=== PATIENT | female | born 1995 | race American Indian/Alaskan Native ===

== ENCOUNTER 2019-12-09 22:33 | Outpatient (CLI) | payer OTHER ==
[2019-12-09 22:55] VITALS: BP 114/64
== END 2019-12-10 00:10 | disposition home or self-care (01) ==
LOC: TRG 22:33 → APU 22:34 → TRG 12-10 00:10
PROVIDERS: ATTEND Obstetrics & Gynecology
DX: O47.1 False labor at or after 37 completed weeks of gestation (principal); Z3A.39 39 weeks gestation of pregnancy
CPT/HCPCS: 59025

== ENCOUNTER 2019-12-17 10:10 | Inpatient (IN) | payer OTHER ==
[2019-12-17] MEDS ORDERED: TERBUTALINE 1 MG/1 ML INJ SUB-Q PRN (11:22)
[2019-12-17] MEDS ORDERED: fentaNYL 100 MCG/2 ML INJ IV PRN (11:22)
[2019-12-17] MEDS ORDERED: LIDOCAINE (2%) 20 MG/1 ML VIAL 20 ML MDV INFILTRATI ONE (11:22)
[2019-12-17] MEDS ORDERED: ePHEDrine SULFATE 50 MG/1 ML INJ IV PRN (11:22)
[2019-12-17] MEDS ORDERED: MINERAL OIL 30 ML ORAL LIQD PO PRN (11:22)
[2019-12-17] MEDS ORDERED: BUTORPHANOL 2 MG/1 ML INJ IV PRN (11:22)
[2019-12-17] MEDS ORDERED: ONDANSETRON 4 MG/2 ML INJ IV PRN (11:22)
[2019-12-17 11:54] LABS: Hematocrit 32.8 % (30.3-42.9); Hemoglobin 10.7 gm/dl (10.1-14.3); Mean Corpuscular HGB Conc 33 % (30-34); Mean Corpuscular Volume 93 fl (79-97); Platelet Count 343 K/mm3 (140-440); Red Blood Count 3.52 M/mm3 (3.65-5.03); Red Cell Distribution Width 14.2 % (13.2-15.2)
[2019-12-17] MEDS ORDERED: OXYTOCIN DRIP 30 UNITS/500 ML BAG IV SCH ×2 (12:00→15:00)
[2019-12-17] MEDS ORDERED: LACTATED RINGERS 1,000 ML IV SCH (12:00)
--- NOTE | 2019-12-17 12:39 | History and Physical Report ---
History of Present Illness Date of examination: 12/17/19 Date of admission: 12/17/2019 Chief complaint: Active labor at term History of present illness: 24 yo, @ 39.5 wks, initiated care with MyOBGYN at 6.5 wks gestation, then transferred to [facility] for care. Her has been uncomplicated. She was seen in office this AM and sent to hospital for active labor. She reports positive FM. Denies any VB or LOF. Labs: O+, antibod negative; rubella immune; HBsAg negative; RPR negative; HIV negative; GC/Chlamydia/ Trich negative; urine culture negative; 1 hr gtt - 114; GBS negative. Past History Past Medical History: no pertinent history Past Surgical History: no surgical history Family/Genetic History: none Social history: full code. denies: smoking, alcohol abuse, prescription drug abuse, IV drug use - Obstetrical History Expected Date of Delivery: 12/15/19 Actual Gestation: 40 Week(s) 2 Day(s) : 2 Para: 1 Hx # Term Pregnancies: 0 Number of Pregnancies: 0 Spontaneous Abortions: 0 Induced : 0 Number of Living Children: 1 #1 Gender: Female year: 2[age][birth year] Birthweight: 2.438 kg Method of Delivery: Vaginal Gestational age at delivery: 37 Complications: none Medications and Allergies Allergies Allergy/AdvReac Type Severity Reaction Status Date / Time No Known Allergies Allergy Unverified 12/09/19 23:07 Active Meds: Active Medications Butorphanol Tartrate (Stadol) 2 mg IV Q2H PRN PRN Reason: Pain , Severe (7-10) Ephedrine Sulfate (Ephedrine Sulfate) 10 mg IV Q2M PRN PRN Reason: Hypotension Fentanyl (Sublimaze) 100 mcg IV Q2H PRN PRN Reason: Pain,Severe (7-10) LABOR PAIN Last Admin: 12/17/19 11:48 Dose: 100 mcg Documented by: Lactated Ringer's (Lactated Ringers) 1,000 mls @ 125 mls/hr IV DIRECT ROMERO Oxytocin/Sodium Chloride (Pitocin/Ns 30 Unit/500ml) 30 units in 500 mls @ 40 mls/hr IV TITR ROMERO; Protocol Ampicillin Sodium (Ampicillin/Ns 2 Gm/100 Ml) 2 gm in 100 mls @ 100 mls/hr IV ONCE ONE; Protocol Stop: 12/17/19 14:21 Mineral Oil (Mineral Oil) 30 ml PO QHS PRN PRN Reason: Constipation Ondansetron HCl (Zofran) 4 mg IV Q8H PRN PRN Reason: Nausea And Vomiting Terbutaline Sulfate (Brethine) 0.25 mg SUB-Q ONCE PRN PRN Reason: Hyperstimulation/Hypertonicity Review of Systems All systems: negative Genitourinary: contractions - Vital Signs Vital signs: Vital Signs Temp Pulse Resp BP 98.2 F 96 H 20 122/81 12/17/19 10:43 12/17/19 10:43 12/17/19 10:43 12/17/19 10:43 Temp Pulse Resp BP Pulse Ox 98.2 F 102 H 18 115/66 92 12/17/19 10:43 12/17/19 11:20 12/17/19 11:48 12/17/19 11:20 12/17/19 10:53 - Physical Exam Breasts: Positive: normal Cardiovascular: Regular rate Lungs: Positive: Normal air movement Abdomen: Positive: other (gravid) Uterus: Positive: enlarged (S=D) - Obstetrical FHR: category 1 Uterine Contraction Monitor Mode: External Cervical Dilatation: 4.5 (per RN) Cervical Effacement Percentage: 50 station: -3 Uterine Contraction Frequency (min): 2-4 Uterine Contraction Pattern: Irregular Uterine Tone Measurement Phase: Resting Uterine Contraction Intensity: Mild Results Result Diagrams: 12/17/19 11:36 Abnormal lab results 12/17/19 Range/Units 11:36 WBC 15.8 H (4.5-11.0) K/mm3 RBC 3.52 L (3.65-5.03) M/mm3 All other labs normal. Assessment and Plan - Patient Problems (1) Active labor at term Current Visit: Yes Status: Acute Plan to address problem: Admit to L & D Pain meds as desired per orders Anticipate (2) Anemia Current Visit: Yes Status: Acute Qualifiers: Anemia type: iron deficiency Plan to address problem: Asymptomatic Recheck H/H
--- NOTE | 2019-12-17 12:58 | Anesthesia Consultation ---
Anesthesia Consult and Med Hx Date of service: 12/17/19 - Airway Anesthetic Teeth Evaluation: Good ROM Head & Neck: Adequate Mental/Hyoid Distance: Adequate Mallampati Class: Class II Intubation Access Assessment: Probably Good - Pulmonary Exam CTA: Yes - Cardiac Exam Cardiac Exam: RRR - Pre-Operative Health Status ASA Pre-Surgery Classification: ASA2 Proposed Anesthetic Plan: Epidural - Pulmonary Hx Asthma: No - Cardiovascular System Hx Hypertension: No - Central Nervous System Hx Seizures: No Hx Psychiatric Problems: No - Endocrine Hx Renal Disease: No Hx Hypothyroidism: No Hx Hyperthyroidism: No - Hematic Hx Anemia: Yes (TAKING IRON) Hx Sickle Cell Disease: No - Other Systems Hx Alcohol Use: No
[2019-12-17] MEDS ORDERED: fentaNYL-BUPIV 2 MCG/ML-0.125% 200 MCG/100 ML BAG EPIDURAL SCH (13:00)
[2019-12-17] MEDS ORDERED: NALOXONE 2 MG/2 ML INJ IV PRN (13:00)
[2019-12-17] MEDS ORDERED: fentaNYL-BUPIV 2 MCG/ML-0.125% 200 MCG/100 ML BAG EPIDURAL ONE (13:03)
[2019-12-17] MEDS ORDERED: AMPICILLIN/NS 2 GM/100 ML 2 GM/100 ML BAG IV ONE (13:22)
--- NOTE | 2019-12-17 13:32 | Progress Note ---
Labor Epidural - Labor Epidural Start Time: 13:11 Stop Time: 13:21 Performed by:: JI FLETON Procedure: Patient is requesting epidural for labor pain. H&P, and labs reviewed. Procedure explained, questions answered, consent obtained. Patient in sitting position with blood pressure cuff and pulse ox on and working. Timeout performed immediately before start of procedure. Sterile betadine prep/drape. 3 mL 1% lidocaine skin wheal at L[3]-L[4]. 18-gauge Touhy epidural needle advanced to [id number] with saline at [7] cm. 27-gauge spinal needle advanced until clear, free-flowing CSF. Intrathecal dexmedetomidine [5] mcg administered and needle removed. Epidural catheter advanced to [12] cm, positive aspiration for blood. Removed and reinserted, negative aspiration for blood and csf, negative test dose 3 ml 1.5% lidocaine with epinephrine. Sterile steri-strips and tegaderm applied, followed by tape reinforcement. Patient tolerated procedure well. [] SRNA
[2019-12-17] MEDS: ePHEDrine SULFATE 50 MG/1 ML INJ IV PRN ×2 (13:45→14:18)
[2019-12-17] MEDS ORDERED: AMPICILLIN/NS 1 GM/50 ML 1 GM/50 ML BAG IV SCH (15:24)
--- NOTE | 2019-12-17 17:41 | Event Note ---
Date: 12/17/19 Assumed care of patient. SVE /0/FILIBERTO.
[2019-12-17] MEDS ORDERED: MAGNESIUM HYDROXIDE (MOM) ORAL LIQD UDC PO PRN (18:29)
[2019-12-17] MEDS ORDERED: LANOLIN/ZINC/DIMETHICONE (LANSINOH) 7 GM TP PRN (18:29)
[2019-12-17] MEDS ORDERED: HYDROcodone/ACETAMINOPHEN 5-325 MG TAB PO PRN (18:29)
[2019-12-17] MEDS ORDERED: WITCH HAZEL/ GLYCERIN PAD TP PRN (18:29)
--- NOTE | 2019-12-17 18:40 | Procedure Note ---
OB Delivery Note - Delivery Date of Delivery: 12/17/19 Surgeon: ISRAEL HERNANDEZ Estimated blood loss: other (350 cc) - Vaginal Delivery presentation: vertex Delivery position: OA Intrapartum events: none Delivery induction: none Delivery augmentation: pitocin Delivery monitor: external FHT, external uterine Route of delivery: Delivery placenta: spontaneous Delivery cord: nuchal cord, 3 umbilical vessels Episiotomy: none Delivery laceration: 1st degree Delivery repair: vicryl Anesthesia: epidural Delivery comments: Spontaneous vaginal delivery at 18:04 of liveborn male infant weighing 8 lb. 2 oz. over intact perineum with apgars of 8/9. Epidural anesthesia. AROM upon , clear fluid. Nuchal cord times 1, manually reduced. Snug shoulders, delivered with assistance of Concha maneuver. 3 vessel cord double clamped and cut and baby taken to radiant warmer for evaluation. Spontaneous cry and respirations. Baby bulb suctioned and dried with warm towels. Cord blood obtained. Spontaneous delivery of intact placenta and membranes at 18:11 by wilkerson mechanism. EBL 350 cc. Pitocin to IV fluids after delivery of placenta. Fundus firm and midline. Skid richardson repaired with one stitch of 3-0 vicryl. No other lacerations noted. Vaginal sweep negative. Sponge count correct. Baby moving all exremities well. Mother and baby stable.
[2019-12-17 19:11] LABS: Hematocrit 30.5 % (30.3-42.9); Hemoglobin 9.9 gm/dl (10.1-14.3)
[2019-12-18] MEDS: FERROUS SULFATE 325 MG TAB PO SCH ×2 (00:22→16:04)
[2019-12-18] MEDS: IBUPROFEN 600 MG TAB PO SCH ×5 (00:22→16:05)
--- NOTE | 2019-12-18 11:08 | Progress Note ---
Assessment and Plan A: day 1 S/P . Anemia. P: Continue iron supplementation. Anticipate discharge home tomorrow if patient continues to do well. Subjective - Subjective Date of service: 12/18/19 Principal diagnosis: day 1 S/P Patient reports: appetite normal, voiding normally, pain well controlled, ambulating normally, no dizzy ambulation, no nauseated [place]: doing well Objective - Vital Signs Latest vital signs: Vital Signs Temp Pulse Resp BP BP Pulse Ox 12/18/19 08:20 98.6 F 100 H 20 91/60 12/18/19 05:42 98.5 F 106 H 20 103/68 99 12/18/19 01:09 97.9 F 20 118/79 12/17/19 20:30 99.2 F 87 18 113/69 100 12/17/19 19:59 99.4 F 12/17/19 19:42 104 H 99 12/17/19 19:37 106 H 100 12/17/19 19:32 106 H 100 12/17/19 19:27 106 H 99 12/17/19 19:22 109 H 98 12/17/19 19:17 103 H 100 12/17/19 19:15 102 H 18 115/54 100 12/17/19 19:12 121 H 98 12/17/19 19:07 104 H 99 12/17/19 19:06 106 H 115/54 12/17/19 19:02 106 H 100 12/17/19 18:57 105 H 100 12/17/19 18:52 102 H 99 12/17/19 18:47 104 H 98 12/17/19 18:42 104 H 98 12/17/19 18:37 109 H 98 12/17/19 18:36 108 H 86/48 12/17/19 18:32 123 H 97/55 97 12/17/19 18:27 101 H 98 12/17/19 18:22 104 H 97 12/17/19 18:21 109 H 67/32 12/17/19 18:17 99 H 98 12/17/19 18:12 101 H 99 12/17/19 18:07 104 H 99 12/17/19 18:06 103 H 93/52 12/17/19 18:02 66 91 12/17/19 17:57 98 H 98 10/23/20 17:52 103 H 99 1023/20 17:47 101 H 99 1023/20 17:42 86 100 1023/20 17:37 103 H 107/65 99 10/20 17:32 95 H 100 12/16/20 17:27 100 H 98 12/16/20 17:26 93 H 104/63 10/20 17:22 101 H 99 12/16/20 17:17 83 99 12/16/20 17:12 81 98 12/16/20 17:07 94 H 99 12/16/20 17:06 92 H 135/103 12/16/20 17:02 97.8 F 95 H 99 12/16/20 16:57 105 H 99 12/16/20 16:52 81 98 12/16/20 16:47 85 98 12/16/20 16:42 82 98 12/16/20 16:37 91 H 98 12/16/20 16:35 87 91/52 12/16/20 16:32 85 99 12/16/20 16:27 82 99 12/16/20 16:25 81 96/54 12/16/20 16:22 84 99 12/16/20 16:17 92 H 102/59 99 12/16/20 16:12 91 H 99 12/16/20 16:07 80 99 12/16/20 16:05 81 104/56 12/16/20 16:02 99 H 99 12/16/20 15:57 88 99 12/16/20 15:55 94 H 107/60 12/16/20 15:52 87 99 12/16/20 15:47 96 H 98 12/16/20 15:46 89 98/56 1023/20 15:42 96 H 97 12/16/20 15:37 85 98 1023/20 15:35 90 82/48 1023/20 15:32 97 H 98 1023/20 15:27 90 99 1023/20 15:24 84 91/51 1023/20 15:22 84 99 12/16/20 15:19 92 H 94/51 1023/20 15:17 98 H 99 12/16/20 15:16 98 H 95/51 1023/20 15:12 92 H 98 12/16/20 15:10 97 H 76/48 10/23/20 15:07 91 H 99 12/17/19 15:05 85 97/59 10 15:02 102 H 99 12/17/19 15:00 97 H 93/55 12/17/19 14:57 95 H 99 12/17/19 14:55 92 H 100/55 12/17/19 14:52 103 H 100 12/17/19 14:49 95 H 97/55 12/17/19 14:47 93 H 100 12/17/19 14:46 85 103/58 12/17/19 14:42 94 H 100 12/17/19 14:40 90 99/60 12/17/19 14:37 104 H 100 12/17/19 14:34 103 H 75/42 12/17/19 14:32 92 H 100 12/17/19 14:30 114 H 74/39 12/17/19 14:27 99 H 100 12/17/19 14:25 90 98/55 12/17/19 14:22 100 H 100 12/17/19 14:20 96 H 99/53 12/17/19 14:17 91 H 100 12/17/19 14:16 93 H 77/42 12/17/19 14:15 89 87/50 12/17/19 14:12 93 H 100 12/17/19 14:10 96 H 84/46 12/17/19 14:07 88 100 12/17/19 14:06 105 H 83/36 12/17/19 14:02 95 H 100 12/17/19 14:01 93 H 88/54 12/17/19 14:00 90 105/58 12/17/19 13:57 96 H 100 12/17/19 13:54 90 98/54 12/17/19 13:52 96 H 100 12/17/19 13:50 91 H 105/58 10 13:47 93 H 100 12/17/19 13:45 91 H 84/52 10 13:42 96 H 80/63 99 12/17/19 13:37 97 H 99 12/17/19 13:34 96 H 100/59 12/17/19 13:32 102 H 99 12/17/19 13:29 102 H 107/65 10/23/20 13:27 106 H 99 12/17/19 13:24 104 H 104/57 12/17/19 13:22 103 H 98 12/17/19 13:20 105 H 102/60 12/17/19 13:17 103 H 99 12/17/19 13:15 110 H 115/72 12/17/19 13:11 107 H 100 12/17/19 13:10 102 H 124/86 12/17/19 12:50 102 H 116/71 12/17/19 11:48 18 12/17/19 11:20 102 H 115/66 Intake and Output 12/17/19 12/18/19 12/18/19 23:59 07:59 15:59 Intake Total 241.767 360 240 Output Total 1300 700 600 Balance -1058.233 -340 -360 Intake: IV 1.767 PITOCin/NS 30 UNIT/500ML 1.767 30 units In 500 ml @ 2 MILLIUNITS/MIN 2 mls/hr IV TITR ROMERO Rx#:[id number] Oral 240 120 240 Intake, Free Water 240 Output: Urine 1300 700 600 Void 1300 700 600 Other: Total, Intake Amount 240 120 240 Total, Output Amount 800 200 600 Estimated Blood Loss 350 - Exam Cardiovascular: Present: Regular rate, No murmurs Lungs: Present: Clear to auscultation Abdomen: Present: normal appearance, soft. Absent: distention, tenderness, guarding, rigidity Uterus: Present: normal, firm, fundal height below umbilicus. Absent: bogginess, tenderness Extremities: Present: normal - Labs Labs: Abnormal lab results 12/17/19 12/17/19 Range/Units 11:36 18:45 WBC 15.8 H (4.5-11.0) K/mm3 RBC 3.52 L (3.65-5.03) M/mm3 Hgb 9.9 L (10.1-14.3) gm/dl
[2019-12-18 13:50] LABS: Hematocrit 29.3 % (30.3-42.9); Hemoglobin 9.6 gm/dl (10.1-14.3)
--- NOTE | 2019-12-18 20:19 | Post Anesthesia Evaluation ---
- Post Anesthesia Evaluation Patient Participated: Yes Airway Patent: Yes Stable Respiratory Function: Yes Nausea/Vomiting: No Temp > 96.8F: Yes Pain Manageable: Yes Adequeate Hydration: Yes Anesthesia Complications: No Block Receding Appropriately: Yes
[2019-12-19] MEDS: IBUPROFEN 600 MG TAB PO SCH ×2 (06:06)
[2019-12-19] MEDS: FERROUS SULFATE 325 MG TAB PO SCH ×2 (09:36)
--- NOTE | 2019-12-19 12:00 | Progress Note ---
Assessment and Plan A: day 2 S/P . Anemia. P: Discharge patient home today. Discussed with patient discharge instructions and warning signs. Advised patient to continue to take her vitamins and iron supplements at home. Advised patient to avoid intercourse, lifting, housework. Advised patient to follow up at [facility] in 4-6 weeks. Patient voiced understanding of all instructions. Subjective - Subjective Date of service: 12/19/19 Principal diagnosis: day 2 S/P Patient reports: appetite normal, voiding normally, pain well controlled, flatus, ambulating normally, no dizzy ambulation, no nauseated [place]: doing well Objective - Vital Signs Latest vital signs: Vital Signs Temp Pulse Resp BP BP Pulse Ox 12/19/19 08:43 97.6 F 85 18 120/80 97 12/18/19 23:22 97.9 F 82 20 105/65 95 12/18/19 16:00 98.2 F 89 20 111/71 12/18/19 12:40 97.7 F 89 20 107/65 Intake and Output 12/18/19 12/19/19 12/19/19 23:59 07:59 15:59 Intake Total 320 240 Output Total 1 Balance 319 240 Intake: Oral 320 240 Output: Urine 1 Void 1 Other: Total, Intake Amount 320 240 Total, Output Amount 1 - Exam Cardiovascular: Present: Regular rate, No murmurs Lungs: Present: Clear to auscultation Abdomen: Present: normal appearance, soft. Absent: distention, tenderness, gua rding, rigidity Uterus: Present: normal, firm, fundal height below umbilicus. Absent: bogginess, tenderness Extremities: Present: normal. Absent: tenderness, edema - Labs Labs: Abnormal lab results 12/18/19 Range/Units 13:01 Hgb 9.6 L (10.1-14.3) gm/dl Hct 29.3 L (30.3-42.9) %
--- NOTE | 2019-12-19 12:13 | Discharge Summary ---
Providers - Providers Date of Admission: 12/17/19 10:11 Date of discharge: 12/19/19 Attending physician: MOHINDER MORAN JR, MD Primary care physician: MOHINDER MORAN JR, MD Hospitalization Reason for admission: active labor Delivery: Episiotomy: none Laceration: 1st degree Other procedures: none complications: none Discharge diagnosis: IUP at term delivered [place] baby: male Pertinent studies: Labs Hospital course: Stable hospital course. Condition at discharge: Good Disposition: DC-01 TO HOME OR SELFCARE - Discharge Diagnoses (1) Term delivered Status: Acute (2) Anemia Status: Acute Qualifiers: Anemia type: iron deficiency Plan - Provider Discharge Summary Activity: routine, no sex for 6 weeks, no heavy lifting 4 weeks, no strenuous exercise Diet: routine Instructions: routine Additional instructions: Continue taking your vitamins and iron supplements at home. Follow up at [facility] office in 4-6 weeks for exam. Call your doctor immediately for: * Fever > 100.5 * Heavy vaginal bleeding ( >1 pad per hour) * Severe persistent headache * Shortness of breath * Reddened, hot, painful area to leg or breast - Follow up plan Follow up: PRIMARY CARE, [Referring] - 6 Weeks Forms: [facility] Discharge Summary
[2019-12-19 14:14] VITALS: BP 123/76
== END 2019-12-19 15:00 | disposition home or self-care (01) | DRG 775 ==
LOC: APU 10:10 → TRG 10:10 → LD 10:10 → TRG 14:26 → OB 20:46
PROVIDERS: ADMIT Obstetrics & Gynecology; ATTEND Obstetrics & Gynecology
PROC: 10E0XZZ Delivery of Products of Conception, External Approach (ICD-10-PCS; principal; 2019-12-17)
PROC: 10907ZC Drainage of Amniotic Fluid, Therapeutic from Products of Conception, Via Natural or Artificial Opening (ICD-10-PCS; 2019-12-17)
PROC: 0HQ9XZZ Repair Perineum Skin, External Approach (ICD-10-PCS; 2019-12-17)
PROC: 3E0R3BZ Introduction of Anesthetic Agent into Spinal Canal, Percutaneous Approach (ICD-10-PCS; 2019-12-17)
PROC: 00HU33Z Insertion of Infusion Device into Spinal Canal, Percutaneous Approach (ICD-10-PCS; 2019-12-17)
DX: O69.81X0 Labor and delivery complicated by cord around neck, without compression, not applicable or unspecified (principal); Z37.0 Single live birth; Z3A.39 39 weeks gestation of pregnancy; O70.0 First degree perineal laceration during delivery; O90.81 Anemia of the puerperium; D64.9 Anemia, unspecified
CPT/HCPCS: 36415; 59025; 85014; 85018; 85027; 86850; 86900; 86901; 96360; 96361; 96365; 96366; 96374; G0378; J2590; J3010; J7120